=== PATIENT | female | born 1965 | race Caucasian/White ===

== ENCOUNTER 2017-11-15 12:18 | Emergency (ER) | payer BC ==
[~2017-11-15] VITALS: Ht 162.6 cm; Wt 52.2 kg
[~2017-11-15 12:18] MED LIST: CYCL-10 PO; HYDR-4100 PO
[2017-11-15 12:33] VITALS: BP_SYST 119
[2017-11-15] MEDS ORDERED: LORazepam 2 MG/ML VIAL (FOR ER USE) IVP ONE (14:00)
[2017-11-15 14:09] LABS: BILIRUBIN,URINE NEGATIVE (NEGATIVE); BLOOD, URINE 2+ (NEGATIVE); CLARITY/URINE CLEAR (CLEAR); COLOR,URINE YELLOW (YELLOW); GLUCOSE,URINE NEGATIVE (NEGATIVE); KETONES,URINE 1+ (NEGATIVE); LEUKOCYTE ESTERASE ,URINE 3+ (NEGATIVE); NITRITE, URINE POSITIVE (NEGATIVE); PROTEIN URINE 2+ (NEGATIVE); UROBILINOGEN,URINE 0.2 (0.2-1.0)
[2017-11-15] MEDS ORDERED: KETOROLAC TROMETHAMINE 60 MG/2 ML VIAL IM ONE (14:15)
[2017-11-15 14:25] LABS: BARBITURATE, URINE NEGATIVE (NEG <=200); BENZODIAZEPINE, URINE NEGATIVE (NEG <=150); CANNABINOID, URINE POSITIVE (NEG <=50); COCAINE, URINE NEGATIVE (NEG <=150); METHAMPHETAMINES SCREEN,URINE NEGATIVE (NEG <=500); OPIATE, URINE NEGATIVE (NEG <=100); PHENCYCLIDINE SCREEN,URINE NEGATIVE (NEG <=25); URINE AMPHETAMINE NEGATIVE (NEG <=500); URINE METHADONE NEGATIVE (NEG <=200)
[2017-11-15 14:26] LABS: UR TRICYCLIC ANTIDEPRESSANTS NEGATIVE (NEG <=300); URINE OXYCODONE SCREEN NEGATIVE (NEG <=100); URINE PROPOXYPHENE SCREEN NEGATIVE (NEG <=300)
[2017-11-15 14:30] LABS: HEMATOCRIT 46.7 % (36-48); HEMOGLOBIN 15.4 g/dL (12.0-16.0); MEAN CORPUSCULAR HEMOGLOBIN 32 pg (27-31); MEAN CORPUSCULAR HGB CONC 33 % (32-36); MEAN CORPUSCULAR VOLUME 96 fL (79.0-98.0); PLATELET COUNT (AUTO) 440 K/uL (130-430); RED BLOOD CELL COUNT(AUTO) 4.88 MIL/uL (4.2-6.2); RED CELL DISTRIBUTION WIDTH 13.2 % (9.0-15.0); WHITE BLOOD COUNT (AUTO) 9.6 K/uL (4.8-10.8)
[2017-11-15 14:32] LABS: BACTERIA,URINE MANY /HPF (None Seen); MUCUS,URINE 1+ /LPF (None Seen); WBC,URINE 20-50 /HPF (0-3)
[2017-11-15 14:37] LABS: ANION GAP 10 (5-15); CALCIUM 9.5 mg/dL (8.4-11.0); CHLORIDE 102 mmol/L (98-107); CREATININE 0.79 mg/dL (0.55-1.30); GLUCOSE 137 mg/dL (70-99); POTASSIUM 3.4 mmol/L (3.5-5.1); SODIUM SERUM 139 mmol/L (136-145); UREA NITROGEN, BLOOD 14 mg/dL (8-21)
[2017-11-15 14:50] LABS: GFR AFRICAN AMERICAN 98 mL/min (>90)
[2017-11-15 14:53] LABS: ALANINE AMINOTRANSFERASE 26 U/L (12-78); ALBUMIN 4.4 g/dL (3.4-4.8); ASPARTATE AMINOTRANSFERASE 21 U/L (10-37); FREE T4 (FREE THYROXINE) 0.5 ng/dL (0.6-1.6); TOTAL BILIRUBIN 0.6 mg/dL (0.0-1.0)
[2017-11-15 14:56] LABS: ALCOHOL, BLOOD < 3 mg/dL (<10)
[2017-11-15 15:56] LABS: LYMPHOCYTES % (MANUAL) 8 % (20-46)
[2017-11-15 15:57] LABS: ATYPICAL LYMPHOCYTES % 1 % (0-0); BASOPHILS % (MANUAL) 0 % (0-2); EOSINOPHILS % (MANUAL) 0 % (0-7); MONOCYTES % (MANUAL) 1 % (0-11)
[2017-11-15 16:08] VITALS: BP_SYST 103
[2017-11-15] MEDS ORDERED: CEFAZOLIN 1 GM IVPB PREMIX 100 ML IV ONE (21:46)
== END 2017-11-15 16:08 | disposition home or self-care (01) ==
LOC: SED 12:18
DX: F41.9 Anxiety disorder, unspecified (principal); N39.0 Urinary tract infection, site not specified; Z88.0 Allergy status to penicillin; Z88.2 Allergy status to sulfonamides; Z88.1 Allergy status to other antibiotic agents; Z87.442 Personal history of urinary calculi
CPT/HCPCS: 36415; 71010; 74000; 80053; 80307; 81000; 83605; 83880; 84439; 84484; 85007; 85027; 85610; 87040; 87086; 87186; 93005; 96372; 96374; 99285; G0482; J0690; J1885; J2060

== ENCOUNTER 2021-04-10 09:24 | Emergency (ER) | payer BC ==
[~2021-04-10] VITALS: Ht 162.6 cm; Wt 50.3 kg
[~2021-04-10 09:24] MED LIST changes: +HYDR-3927 PO; -HYDR-4100 PO
--- NOTE | 2021-04-10 09:24 | NUR ---
Patient to [facility] for evaluation. Side rails up.
[2021-04-10 09:27] VITALS: BP_SYST 136
--- NOTE | 2021-04-10 09:27 | NUR ---
Patient was brought in be [facility] for clearance to book. Patient is complaining of palpitations and dizziness.
--- NOTE | 2021-04-10 09:27 | NUR ---
ER Dr. Palacios in [facility] examining patient.
[2021-04-10 09:29] VITALS: BP_SYST 136
--- NOTE | 2021-04-10 09:29 | NUR ---
Patient given written and verbal discharge instructions and verbalizes understanding. ER MD discussed with patient the results and treatment provided. Patient in stable condition. ID arm band removed.Patient educated on pain management and to follow up with PMD. Pain Scale 0/10. Opportunity for questions provided and answered. Medication side effect fact sheet provided.
== END 2021-04-10 09:29 ==
LOC: SED 09:24
DX: Z02.89 Encounter for other administrative examinations (principal); R00.0 Tachycardia, unspecified; Z88.0 Allergy status to penicillin; Z88.1 Allergy status to other antibiotic agents; Z88.2 Allergy status to sulfonamides; Z79.899 Other long term (current) drug therapy
CPT/HCPCS: 99283